=== PATIENT | female | born 1940 | race Caucasian/White ===

== ENCOUNTER 2016-11-05 10:07 | Emergency (ER) | payer MEDICARE, OTHER ==
[2016-11-05 10:21] VITALS: BP 165/69
[2016-11-05] MEDS ORDERED: Silver Sulfadiazine 1% Crm 50 GM Tube TOP ONE (10:30)
--- NOTE | 2016-11-05 10:54 | EDM.PDOC ---
ED HPI BURN/SMOKE INHALATION - General Chief Complaint: Burn Stated Complaint: L FOOT POSS INFECTION Time Seen by Provider: 11/05/16 10:22 Source of Information: Reports: Patient History Limitations: Reports: No limitations - History of Present Illness INITIAL COMMENTS - FREE TEXT/NARRATIVE: The patient says a couple days ago she had a pot fall off of the counter on to her left foot. Hot gravy spilled on her left foot. She has a burn to her anterior foot. She has edema and erythema. She denies fever or chills. She can walk on her foot. Timing/Duration: Reports: Day(s): Quality: Reports: Sharp Severity: moderate Improves with: Reports: None Worsens with: Reports: None Context, Burn/Smoke Inhalation: Reports: hot liquid Smoke Inhalation: Reports: none Associated Symptoms: Reports: no other symptoms - Related Data Allergies/ADRs: Allergies Allergy/AdvReac Type Severity Reaction Status Date / Time citalopram [From Celexa] Allergy Rash Verified 11/05/16 10:21 prednisone Allergy Rash Verified 11/05/16 10:21 Home Meds: Home Meds ALPRAZolam [Alprazolam ER] 1 mg PO DAILY 11/05/16 [History] Cephalexin [Keflex] 500 mg PO Q6HR #40 cap 11/05/16 [Rx] Levothyroxine Sodium 137 mcg PO DAILY 11/05/16 [History] Propranolol HCl [Inderal Xl] 120 mg PO DAILY 11/05/16 [History] Sertraline [Zoloft] 100 mg PO DAILY 11/05/16 [History] Past Medical History Cardiovascular History: Reports: Hypertension Gastrointestinal History: Reports: Bowel obstruction Endocrine/Metabolic History: Reports: Hyperthyroidism - Past Surgical History GI Surgical History: Reports: Cholecystectomy, Small bowel Female Surgical History: Reports: Hysterectomy Endocrine Surgical History: Reports: Thyroidectomy Social & Family History - Tobacco Use Smoking Status *Q: Never Smoker - Recreational Drug Use Recreational Drug Use: No ED ROS GENERAL - Review of Systems Review Of Systems: See Below Constitutional: Reports: no symptoms HEENT: Reports: No symptoms Respiratory: Reports: No Symptoms Cardiovascular: Reports: No symptoms Endocrine: Reports: no symptoms GI/Abdominal: Reports: No symptoms : Reports: no symptoms Musculoskeletal: Reports: other (Burn and redness to her left foot) ED EXAM, BURN/SMOKE INHALATION - Physical Exam Exam: See Below Exam Limited By: No limitations General Appearance: alert, no apparent distress Ears (Abbreviated): normal external exam Head: no symptoms Neck: no symptoms Respiratory: no respiratory distress, lungs clear, normal breath sounds Cardiovascular: regular rate, rhythm, no edema, no murmur GI/Abdominal: soft, non tender, no organomegaly Extremities: other (Erythema of her foot and open blisters to the anterior foot. ) Course - Vital Signs Last Recorded V/S: Last Vital Signs Temp 97.4 F 11/05/16 10:17 Pulse 56 L 11/05/16 10:17 Resp 16 11/05/16 10:17 BP 165/69 H 11/05/16 10:17 Pulse Ox 97 11/05/16 10:17 - Orders/Labs/Meds Orders: Active Orders 24 hr Category Date Time Status Foot Comp Min 3V Lt [CR] Stat Exams 11/05/16 10:29 Taken Meds: Medications Discontinued Medications Generic Name Dose Route Start Last Admin Trade Name Freq PRN Reason Stop Dose Admin Silver Sulfadiazine 1 gm 11/05/16 10:30 11/05/16 11:00 Silvadene 1% Cream 50 Gm TOP 11/05/16 10:31 1 gm ONETIME ONE Administration - Re-Assessments/Exams Free Text/Narrative Re-Assessment/Exam: 11/05/16 11:36 Her x-ray looks good. She has a second degree burn to her foot and cellulitis. I will housekeeper caregiver her some silvadene here and get her on some keflex. Departure - Departure Time of Disposition: 11:40 Disposition: Home, Self-Care 01 Condition: good Clinical Impression: Burn of left foot Qualifiers: Encounter type: initial encounter Burn degree: second degree Qualified Code(s) : T25.222A - Burn of second degree of left foot, initial encounter Cellulitis Qualifiers: Site of cellulitis: extremity Site of cellulitis of extremity: lower extremity Laterality: left Qualified Code(s): L03.116 - Cellulitis of left lower limb Prescriptions: Cephalexin [Keflex] 500 mg PO Q6HR #40 cap Referrals: Angela Fernandes, MANAGER PRODUCTION [Primary Care Provider] - 1 Week Forms: ED Department Discharge Additional Instructions: Soak your foot in warm soapy water 2 times per day and apply the silvadene ointment after. Take the keflex 4 times per day and please return if you are worse such as fever, chills, or increased redness. - My Orders Last 24 Hours: My Active Orders 11/05/16 10:29 Foot Comp Min 3V Lt [CR] Stat - Assessment/Plan Last 24 Hours: My Active Orders 11/05/16 10:29 Foot Comp Min 3V Lt [CR] Stat
--- NOTE | 2016-11-06 13:54 | CR ---
Left foot: Four views of the left foot were obtained. Comparison: No previous study. Joint spaces are maintained. Bony structures are osteopenic. No acute fracture or other abnormality is seen. Impression: 1. Osteopenia. No acute bony abnormality is identified on left foot study. Diagnostic code #2
== END 2016-11-05 11:50 | disposition home or self-care (01) ==
LOC: JD.ED 10:07
DX: T25.222A Burn of second degree of left foot, initial encounter (principal); L03.116 Cellulitis of left lower limb; I10 Essential (primary) hypertension; E03.9 Hypothyroidism, unspecified; Z90.710 Acquired absence of both cervix and uterus; Z90.49 Acquired absence of other specified parts of digestive tract; Z98.890 Other specified postprocedural states; Z88.8 Allergy status to other drugs, medicaments and biological substances; Z79.899 Other long term (current) drug therapy; W22.8XXA Striking against or struck by other objects, initial encounter
CPT/HCPCS: 73630; 99283; A9270

== ENCOUNTER 2016-11-07 10:18 | Emergency (ER) | payer MEDICARE, OTHER ==
[2016-11-07 10:38] VITALS: BP 151/70
[2016-11-07] MEDS ORDERED: cefTRIAXone 1,000 MG VIAL IM ONE (11:09)
[2016-11-07] MEDS ORDERED: Amoxicillin/Clavulanate K 875-125 MG Tab PO ONE (11:11)
--- NOTE | 2016-11-07 11:20 | EDM.PDOC ---
ED HPI Trauma - General Chief Complaint: Lower Extremity Injury/Pain Stated Complaint: FOOT INFECTION Time Seen by Provider: 11/07/16 11:01 Source: Reports: Patient, Old records History Limitations: Reports: No limitations - History of Present Illness INITIAL COMMENTS - FREE TEXT/NARRATIVE: Patient presents to the E.D. with concerns of worsening infection to the left foot. Patient was evaluated two days ago in the E.D. after spilling hot liquids from a roast on her foot. X-ray was obtained with no obvious fracture. Snyder were 2nd degree, silvadene/dressing applied. Patient was placed on keflex. States the tow are blisters to distal aspect of foot have popped leaking clear fluid. She has noted increased redness/swelling to her foot. Pain has increased as well. She denies redness extending up lower leg, n/v, fever/chills, or any additional complaints. Occurred When: last week Occurred Where: home Method of Injury: other Severity: moderate Pain/Injury Location: Reports: upper extremity, left Allergies/ADRs: Allergies citalopram [From Celexa] Allergy (Verified 11/07/16 10:31) Rash prednisone Allergy (Verified 11/07/16 10:31) Rash Home Medications: Ambulatory Orders ALPRAZolam [Alprazolam ER] 1 mg PO DAILY 11/05/16 [Confirmed 11/07/16] Levothyroxine Sodium 137 mcg PO DAILY 11/05/16 [Confirmed 11/07/16] Propranolol HCl [Inderal Xl] 120 mg PO DAILY 11/05/16 [Confirmed 11/07/16] Sertraline [Zoloft] 100 mg PO DAILY 11/05/16 [Confirmed 11/07/16] Amoxicillin/Potassium Clav [Augmentin 875-125 Tablet] 1 each PO BID #14 tablet 11/07/16 Past Medical History Cardiovascular History: Reports: Hypertension Gastrointestinal History: Reports: Bowel obstruction Endocrine/Metabolic History: Reports: Hypothyroidism - Past Surgical History HEENT Surgical History: Reports: Cataract surgery GI Surgical History: Reports: Cholecystectomy, Small bowel Female Surgical History: Reports: Hysterectomy Endocrine Surgical History: Reports: Thyroidectomy Social & Family History - Tobacco Use Smoking Status *Q: Never Smoker - Caffeine Use Caffeine Use: Reports: Tea - Recreational Drug Use Recreational Drug Use: No Review of Systems - Review of Systems Review Of Systems: See Below Constitutional: Denies: fever GI/Abdominal: Denies: Nausea, Vomiting Musculoskeletal: Reports: foot pain (left) Skin: Reports: burn(s) (left dorsal foot/toes) Trauma Exam - Physical Exam Exam: See Below Exam Limited By: No limitations General Appearance: Reports: alert, WD/WN, no apparent distress Ears: Reports: hearing grossly normal Nose: Reports: normal inspection Throat/Mouth: Reports: Normal voice, No airway compromise Respiratory Exam: Reports: no respiratory distress, lungs clear, normal breath sounds Cardiovascular: Reports: normal peripheral pulses, no edema, bradycardia Neurologic: Reports: no motor/sensory deficits, alert, normal mood/affect, oriented x 3 Skin: Reports: Normal color, Warm/dry Comments: Left foot: erythema noted to the dorsal complete aspect of foot with two areas measuring 1.5cmx 2.5cm and 4cm x 4 cm where previous blister was present. Area is sharply red under blisters. Clear drainage noted. Blisters to the tip of the great toe and 2nd toe. Increased warmth, swelling, and redness noted. Mild pain with palpation. Area of erythema was marked with skin marker. Mild extension noted to the ankle. Course - Vital Signs Last Recorded V/S: Last Vital Signs Temp 98.1 F 11/07/16 10:36 Pulse 53 L 11/07/16 10:36 Resp 12 11/07/16 10:36 BP 151/70 H 11/07/16 10:36 Pulse Ox 95 11/07/16 10:36 - Orders/Labs/Meds Meds: Medications Discontinued Medications Generic Name Dose Route Start Last Admin Trade Name Freq PRN Reason Stop Dose Admin Amoxicillin/Clavulanate Potassium 1 tab 11/07/16 11:11 11/07/16 11:19 Augmentin 875 Mg/125 Mg PO 11/07/16 11:12 1 tab ONETIME ONE Administration Ceftriaxone Sodium 1,000 mg 11/07/16 11:09 11/07/16 11:49 Rocephin IM 11/07/16 11:10 Not Given ONETIME ONE Ceftriaxone Sodium 1 gm 11/07/16 11:30 11/07/16 11:49 Rocephin IM 11/07/16 11:31 1 gm ONETIME ONE Administration - Re-Assessments/Exams Free Text/Narrative Re-Assessment/Exam: 11/07/16 11:12 Since onset 2 days ago patient has noticed increased redness, swelling, and warmth noted to the foot/ankle. She has been on Keflex for the past 2 days. Does not appear this antibiotic is working and thus will proceed with broadening spectrum antibiotic therapy. I have ordered Rocephin IM rather than IV per patient's request. As well ordered Augmentin 875 mg by mouth. Will umair out the area of erythema with a skin marker to better evaluate progression. In addition will cover with bacitracin and nonadherent dressing. Will schedule an appointment with her primary care provider tomorrow for reevaluation. Patient discharged home with instructions as provided. Departure - Departure Time of Disposition: 11:14 Disposition: Home, Self-Care 01 Condition: good Clinical Impression: Burn of foot, left, second degree Cellulitis Qualifiers: Site of cellulitis: extremity Site of cellulitis of extremity: lower extremity Laterality: left Qualified Code(s): L03.116 - Cellulitis of left lower limb Prescriptions: Amoxicillin/Potassium Clav [Augmentin 875-125 Tablet] 1 each PO BID #14 tablet Instructions: Cellulitis, Adult, [id number], Second-Degree Burn Referrals: Angela Fernandes, CONCIERGE MANAGER [Primary Care Provider] - Forms: ED Department Discharge Additional Instructions: It appears on top of the second-degree snyder to the dorsal aspect your foot you have developed cellulitis. Antibiotic previously on is not working. Thus will change your antibiotic from Keflex to Augmentin one tablet twice a day for 7 days. Continue to cleanse site twice daily with soap and water, pat dry, and reapply silvadene cream. Elevate when able to reduce swelling and pain. Followup with PCP tomorrow for reevaluation and close followup. Return to the E.D. if you develop increased redness extending up your leg, fever/chills, n/v, or worsening pain. Appointment with Sandie Fernandes is scheduled for tomorrow 11/08/16 at 10:45 a.m.
[2016-11-07] MEDS ORDERED: cefTRIAXone 1 GM Vial IM ONE (11:30)
== END 2016-11-07 12:15 | disposition home or self-care (01) ==
LOC: SUPCPDRO 10:18 → JD.ED 10:18
DX: L03.116 Cellulitis of left lower limb (principal); T25.222D Burn of second degree of left foot, subsequent encounter; T25.232D Burn of second degree of left toe(s) (nail), subsequent encounter; I10 Essential (primary) hypertension; E03.9 Hypothyroidism, unspecified; Z98.49 Cataract extraction status, unspecified eye; Z90.49 Acquired absence of other specified parts of digestive tract; Z90.710 Acquired absence of both cervix and uterus; Z79.899 Other long term (current) drug therapy; Z88.8 Allergy status to other drugs, medicaments and biological substances; X12.XXXD Contact with other hot fluids, subsequent encounter; Y92.009 Unspecified place in unspecified non-institutional (private) residence as the place of occurrence of the external cause
CPT/HCPCS: 96372; 99283; A9270; J0696

== ENCOUNTER 2019-08-07 09:55 | Emergency (ER) | payer MEDICARE, OTHER ==
[2019-08-07 10:40] VITALS: BP 175/79; PULSE 50
--- NOTE | 2019-08-07 12:20 | CR ---
Left wrist: Four views of the left wrist were obtained. Comparison: No previous wrist exam. Bony structures are osteopenic. Joint spaces within the wrist are preserved. Joint space narrowing is partially visualized within the DIP and PIP joints. No fracture, dislocation or other bony abnormality is appreciated. Impression: 1. Osteopenia and mild degenerative change. 2. Left wrist study is otherwise unremarkable. Diagnostic code #2 This report was dictated in [place] Standard Time
--- NOTE | 2019-08-07 12:51 | CR ---
Left wrist: Single navicular view of the left wrist was obtained. Comparison: Previous left wrist study performed earlier on the same day (10:47 AM). Navicular bone shows no fracture. Osteopenia is present. Impression: 1. No navicular fracture is seen. Diagnostic code #2 This report was dictated in [place] Standard Time
--- NOTE | 2019-08-07 13:08 | EDM.PDOC ---
ED HPI GENERAL MEDICAL PROBLEM - General Chief Complaint: Upper Extremity Injury/Pain Stated Complaint: LT WRIST INJURY Time Seen by Provider: 08/07/19 10:48 Source of Information: Reports: Patient, RN Notes Reviewed - History of Present Illness INITIAL COMMENTS - FREE TEXT/NARRATIVE: 79 year old female slipped and fell on cement injuring L wrist. Pain, swelling, bruising L wrist. She did also suffer abrasion L eyebrow from her glasses. No LOC. No Davis, nausea, vomiting, neck, back or chest pain. Left Wrist Pain Score (Numeric/FACES): 5 - Related Data Allergies Allergy/AdvReac Type Severity Reaction Status Date / Time citalopram [From Celexa] Allergy Rash Verified 08/07/19 10:33 prednisone Allergy Rash Verified 08/07/19 10:33 Home Meds: Home Meds ALPRAZolam [Alprazolam ER] 1 mg PO DAILY 11/05/16 [History] Levothyroxine Sodium 137 mcg PO DAILY 11/05/16 [History] Propranolol HCl [Inderal Xl] 120 mg PO DAILY 11/05/16 [History] Sertraline [Zoloft] 100 mg PO DAILY 11/05/16 [History] Past Medical History Cardiovascular History: Reports: Hypertension Gastrointestinal History: Reports: Bowel Obstruction 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: Psychiatric History: Reports: Depression Endocrine/Metabolic History: Reports: Hypothyroidism - Past Surgical History HEENT Surgical History: Reports: Cataract Surgery GI Surgical History: Reports: Cholecystectomy, Small Bowel Female Surgical History: Reports: Hysterectomy Endocrine Surgical History: Reports: Thyroidectomy Social & Family History - Tobacco Use Smoking Status *Q: Current Some Day Smoker Years of Tobacco use: 8 Packs/Tins Daily: 0.5 - Caffeine Use Caffeine Use: Reports: None - Recreational Drug Use Recreational Drug Use: No Review of Systems - Review of Systems Review Of Systems: See Below Constitutional: Reports: No Symptoms Eyes: Reports: No Symptoms Ears: Reports: Clear Discharge Nose: Reports: No Symptoms Mouth/Throat: Reports: No Symptoms Respiratory: Denies: Shortness of Breath Cardiovascular: Denies: Chest Pain GI/Abdominal: Denies: Abdominal Pain, Nausea, Vomiting Musculoskeletal: Reports: Joint Pain Skin: Reports: Other (small Lac/abrasion L eyebrow) Neurological: Denies: Dizziness, Headache, Numbness, Tingling, Trouble Speaking , Difficulty Walking, Weakness ED EXAM, GENERAL - Physical Exam Exam: See Below General Appearance: Alert, Mild Distress Eye Exam: Bilateral Eye: PERRL Ear Exam: Bilateral Ear: Auricle Normal Nose: Normal Inspection Throat/Mouth: Normal Inspection Head: Other (small lac/abrasion L eyebrow, non-gaping, no active bleeding) Respiratory/Chest: No Respiratory Distress, Lungs Clear, Normal Breath Sounds Cardiovascular: Regular Rate, Rhythm GI/Abdominal: Non-Tender Extremities: Other (There is moderate bruising base of thumb left hand, volar left wrist, mild swelling, mild diffuse tenderness volar and radial aspect of wrist. Fairly good range of motion with mild discomfort. Old deformity. Hand otherwise nontender arm elbow shoulder all nontender.) Neurological: Alert, Oriented, No Motor/Sensory Deficits Course - Vital Signs Last Recorded V/S: Last Vital Signs Temp 98.1 F 08/07/19 10:33 Pulse 50 L 08/07/19 10:33 Resp 16 08/07/19 10:33 BP 175/79 H 08/07/19 10:33 Pulse Ox 94 L 08/07/19 10:33 - Orders/Labs/Meds Orders: Active Orders 24 hr Category Date Time Status Durable Medical Equipment for Discharge [DME for Oth 08/07/19 13:22 Ordered Discharge] [COMM] Stat - Re-Assessments/Exams Free Text/Narrative Re-Assessment/Exam: 08/08/19 07:44 X-rays no fracture, with Velcro wrist splint, discharge instructions as documented Departure - Departure Time of Disposition: 13:07 Disposition: Home, Self-Care 01 Condition: Fair Clinical Impression: Fall, Contusion of wrist, left - Discharge Information Instructions: Contusion, [id number] Referrals: Angela Fernandes, WEB OPERATIONS MANAGER [Primary Care Provider] - Forms: ED Department Discharge Additional Instructions: Palmer wrap left hand and wrist, wrist splint left wrist for comfort and protection , ice packs and elevation for swelling, Tylenol every 6-8 hours if needed for pain. Have rechecked if not getting back to normal within 7-10 days as expected. Sepsis Event Note - Evaluation Sepsis Screening Result: No Definite Risk - Focused Exam Date Exam was Performed: 08/08/19 Time Exam was Performed: 07:09 - My Orders Last 24 Hours: My Active Orders 08/07/19 13:22 Durable Medical Equipment for Discharge [DME for Discharge] [COMM] Stat - Assessment/Plan Last 24 Hours: My Active Orders 08/07/19 13:22 Durable Medical Equipment for Discharge [DME for Discharge] [COMM] Stat
== END 2019-08-07 13:38 | disposition home or self-care (01) ==
LOC: JD.ED 09:55
DX: S01.112A Laceration without foreign body of left eyelid and periocular area, initial encounter (principal); S60.212A Contusion of left wrist, initial encounter; S60.012A Contusion of left thumb without damage to nail, initial encounter; I10 Essential (primary) hypertension; F32.9 Major depressive disorder, single episode, unspecified; E03.9 Hypothyroidism, unspecified; F17.210 Nicotine dependence, cigarettes, uncomplicated; Z88.8 Allergy status to other drugs, medicaments and biological substances; Z79.899 Other long term (current) drug therapy; Z79.890 Hormone replacement therapy; W01.0XXA Fall on same level from slipping, tripping and stumbling without subsequent striking against object, initial encounter
CPT/HCPCS: 73100-26-LT; 73100-LT; 73110-26-LT; 73110-LT; 99283-25

== ENCOUNTER 2020-03-21 09:39 | Emergency (ER) | payer MEDICARE, OTHER ==
[2020-03-21 09:51] VITALS: PULSE 82
[2020-03-21 09:55] VITALS: BP 158/78
[2020-03-21] MEDS ORDERED: Acetaminophen 325 MG Tab PO ONE (10:17)
--- NOTE | 2020-03-21 11:01 | CR ---
Right elbow: 4 views of the right elbow were obtained. Comparison: No prior elbow study. Possible joint effusion is noted. Small chip fracture is noted off the medial epicondyle. Uncertain if this is old or acute. No additional fracture or other bony abnormality is appreciated. Impression: 1. Fracture off the medial epicondyle. Uncertain if this is old or acute. Please correlate with the patient's symptoms. 2. Possible joint effusion. 3. No additional abnormality is appreciated. Diagnostic code #3 This report was dictated in MDT
--- NOTE | 2020-03-21 11:37 | EDM.PDOC ---
ED HPI GENERAL MEDICAL PROBLEM - General Chief Complaint: Upper Extremity Injury/Pain Stated Complaint: [facility] Time Seen by Provider: 03/21/20 10:00 Source of Information: Reports: Patient, RN Notes Reviewed - History of Present Illness INITIAL COMMENTS - FREE TEXT/NARRATIVE: 80 yr old female comes in with R elbow pain. She fell last evening. Has pain lateral R elbow. No other pain or injury. Right Arm Pain Score (Numeric/FACES): 0 - Related Data Allergies Allergy/AdvReac Type Severity Reaction Status Date / Time citalopram [From Celexa] Allergy Rash Verified 03/21/20 10:02 prednisone Allergy Rash Verified 03/21/20 10:02 Home Meds: Home Meds ALPRAZolam [Alprazolam ER] 1 mg PO DAILY 11/05/16 [History] Levothyroxine Sodium 137 mcg PO DAILY 11/05/16 [History] Propranolol HCl [Inderal Xl] 120 mg PO DAILY 11/05/16 [History] Sertraline [Zoloft] 100 mg PO DAILY 11/05/16 [History] Past Medical History Cardiovascular History: Reports: Hypertension Gastrointestinal History: Reports: Bowel Obstruction 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: Psychiatric History: Reports: Depression Endocrine/Metabolic History: Reports: Hypothyroidism - Infectious Disease History Infectious Disease History: Reports: Chicken Pox, Measles, Mumps - Past Surgical History HEENT Surgical History: Reports: Cataract Surgery GI Surgical History: Reports: Cholecystectomy, Small Bowel Female Surgical History: Reports: Hysterectomy Endocrine Surgical History: Reports: Thyroidectomy Social & Family History - Tobacco Use Smoking Status *Q: Current Some Day Smoker Years of Tobacco use: 30 Packs/Tins Daily: 0.5 - Caffeine Use Caffeine Use: Reports: None Review of Systems - Review of Systems Review Of Systems: See Below Constitutional: Reports: No Symptoms Eyes: Reports: No Symptoms Ears: Reports: No Symptoms Nose: Reports: No Symptoms Mouth/Throat: Reports: No Symptoms Respiratory: Denies: Shortness of Breath Cardiovascular: Denies: Chest Pain GI/Abdominal: Denies: Nausea, Vomiting Musculoskeletal: Reports: Joint Pain ( R elbow) Skin: Reports: No Symptoms Neurological: Reports: No Symptoms ED EXAM, GENERAL - Physical Exam Exam: See Below General Appearance: Alert, Mild Distress Head: Atraumatic Neck: Supple Respiratory/Chest: No Respiratory Distress, Lungs Clear, Normal Breath Sounds Cardiovascular: Regular Rate, Rhythm GI/Abdominal: Soft Back Exam: No: CVA Tenderness (L), CVA Tenderness (R) Extremities: Other (Tender R lateral elbow mild swelling R lateral elbow, moderate pain with motion, R shoulder, arm, wrist, hand nontender) Neurological: Alert, Oriented, No Motor/Sensory Deficits Course - Vital Signs Last Recorded V/S: Last Vital Signs Temp 98.4 F 03/21/20 09:45 Pulse 82 03/21/20 09:45 Resp 18 03/21/20 09:45 BP 158/78 H 03/21/20 09:54 Pulse Ox - Orders/Labs/Meds Orders: Active Orders 24 hr Category Date Time Status Durable Medical Equipment for Discharge [DME for Oth 03/21/20 11:34 Ordered Discharge] [COMM] Stat Durable Medical Equipment for Discharge [DME for Oth 03/21/20 11:34 Ordered Discharge] [COMM] Stat Meds: Medications Discontinued Medications Generic Name Dose Route Start Last Admin Trade Name Freq PRN Reason Stop Dose Admin Acetaminophen 975 mg 03/21/20 10:17 03/21/20 10:51 Tylenol PO 03/21/20 10:18 975 mg NOW ONE Administration - Re-Assessments/Exams Free Text/Narrative Re-Assessment/Exam: 03/21/20 15:23 Has a very small avulsion fx lateral aspect of R elbow, will treat with palmer wrap and arm sling, discharge instr. as documented. Departure - Departure Time of Disposition: 11:34 Disposition: Home, Self-Care 01 Condition: Fair Clinical Impression: Fall Qualifiers: Encounter type: initial encounter Qualified Code(s): W19.XXXA - Unspecified fall, initial encounter Elbow fracture, right Qualifiers: Encounter type: initial encounter Fracture type: closed Qualified Code(s): S42.401A - Unspecified fracture of lower end of right humerus, initial encounter for closed fracture - Discharge Information Instructions: Fall Prevention in the Home, Adult Referrals: Angela Fernandes NP [Primary Care Provider] - Forms: ED Department Discharge Additional Instructions: You have a fracture of your R elbow but at this time all we see is a very small bone chip. Palmer Wrap, arm sling as needed for comfort. Ice packs and elevation as needed for the swelling. Tylenol q 6 to 8 hr as needed for pain. See your medical provider in about 4 to 6 days for recheck, call for appt. Monday. Sepsis Event Note (ED) - Evaluation Sepsis Screening Result: No Definite Risk - Focused Exam Vital Signs: Vital Signs Temp Pulse Resp BP 03/21/20 09:54 158/78 H 03/21/20 09:45 98.4 F 82 18 - My Orders Last 24 Hours: My Active Orders 03/21/20 11:34 Durable Medical Equipment for Discharge [DME for Discharge] [COMM] Stat Durable Medical Equipment for Discharge [DME for Discharge] [COMM] Stat - Assessment/Plan Last 24 Hours: My Active Orders 03/21/20 11:34 Durable Medical Equipment for Discharge [DME for Discharge] [COMM] Stat Durable Medical Equipment for Discharge [DME for Discharge] [COMM] Stat
== END 2020-03-21 11:53 | disposition home or self-care (01) ==
LOC: JD.ED 09:39
DX: S42.441A Displaced fracture (avulsion) of medial epicondyle of right humerus, initial encounter for closed fracture (principal); I10 Essential (primary) hypertension; F32.9 Major depressive disorder, single episode, unspecified; E03.9 Hypothyroidism, unspecified; F17.210 Nicotine dependence, cigarettes, uncomplicated; Z90.49 Acquired absence of other specified parts of digestive tract; Z90.710 Acquired absence of both cervix and uterus; Z88.8 Allergy status to other drugs, medicaments and biological substances; Z79.899 Other long term (current) drug therapy; W19.XXXA Unspecified fall, initial encounter
CPT/HCPCS: 73080; 99284; A9270; 99282